=== PATIENT | male | born 1970 | race Caucasian/White ===

== ENCOUNTER → 2021-11-22 | Outpatient (CLI) | payer OTHER | LOC: ECHO 10-21 12:00 → NM 10-21 13:00 → ECHO 11-08 12:30 | DX: R06.02 Shortness of breath (principal); R07.89 Other chest pain; R00.2 Palpitations; I70.0 Atherosclerosis of aorta; I34.0 Nonrheumatic mitral (valve) insufficiency; I51.7 Cardiomegaly; R94.39 Abnormal result of other cardiovascular function study | CPT/HCPCS: ECHO; 78452; 93017; 93306; A9502 ==

== ENCOUNTER 2022-01-14 11:30 | Emergency (ER) | payer OTHER ==
[2022-01-14 12:55] LABS: HEMOGLOBIN 17.6 gm/dl (14.0-17.5); RED BLOOD COUNT 5.47 M/UL (4.20-5.50)
[2022-01-14 13:12] LABS: BUN/CREATININE RATIO 16 (0-10)
== END 2022-01-14 14:44 | disposition home or self-care (01) ==
LOC: ER1 11:30
PROVIDERS: Nurse Practitioner
DX: I10 Essential (primary) hypertension (principal); F17.210 Nicotine dependence, cigarettes, uncomplicated
CPT/HCPCS: 80053; 82550; 82553; 84484; 85025; 93005; 96374; 99284; J1885